=== PATIENT | female | born 1940 | race Caucasian/White ===

== ENCOUNTER → 2018-07-26 | Outpatient (CLI) | payer MEDICARE ==
--- NOTE | 2018-07-26 16:50 | Diagnostic Imaging Report ---
INDICATION: Abdominal distention. PA chest, supine and upright abdominal images were obtained. FINDINGS: Lungs are clear. There is no intraperitoneal free air. Bowel gas pattern is normal. There are no pathologic masses or calcifications. IMPRESSION: Negative abdomen series. Dictated by: Dictated on workstation # [id number]
== END ==
LOC: RAD FS 16:34
PROVIDERS: ATTEND Family Medicine
DX: R14.0 Abdominal distension (gaseous) (principal)
CPT/HCPCS: 74022

== ENCOUNTER 2020-12-18 05:40 | Emergency (ER) | payer MEDICARE ==
[~2020-12-18] VITALS: Ht 162.6 cm; Wt 93.4 kg
[2020-12-18 05:49] VITALS: BP 188/74
--- NOTE | 2020-12-18 06:08 | ED Integumentary General ---
General Chief Complaint: Bite-Animal/Human/Insect Stated Complaint: INSECT BITE RIGHT ARM Nursing Triage Note: PT AMBUALATE TO ROOM FS02 WITH C/O BUG BITES TO LEFT WRIST AND RIGHT SHOULDER. PT STATES THAT SHE WOKE UP SCRATCHING HER LEFT WRIST AND THEN PUT HYDROGEN PEROXIDE ON THE AREA. AT THIS TIME THE PT NOTICES A BRUISED AREA TO RIGHT SHOULDER WITH SMALL RED BITES TO THE AREA. Source: patient Exam Limitations: no limitations History of Present Illness Date Seen by Provider: Dec 18, 2020 Time Seen by Provider: 05:50 Initial Comments 80-year-old female with past medical history of CHF, hypertension, hyperlipidemia, hypothyroidism, and diabetes coming in due to concerns for bug bites. She states she woke up in the middle the night, her left hand and wrist were itching, and when she checked she had small circular red dots on her hand that were concerning for bug bites to her. She put hydrogen peroxide on it at that time. It was then that she noticed that her right shoulder was hurting her, and she noticed a bruise to the area. It was at this time that she decided to present to the emergency department. She does not remember hitting her shoulder on anything, and does not take any blood thinners. She states she has full range of motion of her shoulder and it does not hurt if she is not touching it. She denies any fever, body aches, hematuria, headache, weakness, numbness, chest pain, shortness of breath, nausea, vomiting, abdominal pain, dysuria, or any other concerns. Allergies and Home Medications Allergies Coded Allergies: Penicillins (Verified Allergy, Unknown, 12/18/20) adenosine (Verified Allergy, Unknown, 12/18/20) bee venom protein (honey bee) (Verified Allergy, Unknown, 12/18/20) quinine (Verified Allergy, Unknown, 12/18/20) tetracycline (Verified Allergy, Unknown, 12/18/20) Patient Home Medication List Home Medication List Reviewed: Yes Review of Systems Review of Systems Constitutional: No fever EENTM: No blurred vision Respiratory: No cough, No short of breath Cardiovascular: No chest pain Gastrointestinal: No abdominal pain, No diarrhea, No nausea, No vomiting Genitourinary: No dysuria, No frequency Musculoskeletal: No back pain Skin: pruritus, rash Psychiatric/Neurological: Denies Anxiety, Denies Depressed Endocrine: No Symptoms Reported Hematologic/Lymphatic: No Symptoms Reported All Other Systems Reviewed Negative Unless Noted: Yes Past Hkyxnpx-Aidlbb-Qpkyie Hx Patient Social History Tobacco Use?: No Smoking Status: Never a Smoker Substance use?: No Alcohol Use?: Yes Alcohol type: Wine Alcohol Frequency: Once in a while Physical Exam Vital Signs Vital Signs - First Documented 12/18/20 05:49 Temp 36.4 Pulse 84 Resp 17 B/P (MAP) 188/74 (112) O2 Delivery Room Air Capillary Refill : Less Than 3 Seconds General Appearance: WD/WN, no apparent distress HEENT: PERRL/EOMI, normal ENT inspection, pharynx normal Neck: non-tender, full range of motion, supple, normal inspection Cardiovascular: regular rate, rhythm, no edema, no murmur Respiratory: chest non-tender, lungs clear, normal breath sounds, no respiratory distress, no accessory muscle use Gastrointestinal: normal bowel sounds, non tender, soft; No distended, No guarding Back: normal inspection Extremities: normal range of motion, non-tender, normal inspection, no pedal edema Neurologic/Psychiatric: no motor/sensory deficits, alert, normal mood/affect Skin: normal color, warm/dry, rash (Roughly 1 cm macular circular rash to her left hand which is in roughly 4 places on the hand, this is blanchable, Nikolsky negative, no bite seen, more so over bruising pattern to the right shoulder) Lymphatic: no adenopathy Progress/Results/Core Measures Results/Orders Lab Results Laboratory Tests Test 12/18/20 06:01 Range/Units Urine Color YELLOW Urine Clarity CLEAR Urine pH 5.5 5-9 Urine Specific [place] 1.025 H 1.016-1.022 Urine Protein NEGATIVE NEGATIVE Urine Glucose (UA) NEGATIVE NEGATIVE Urine Ketones NEGATIVE NEGATIVE Urine Nitrite NEGATIVE NEGATIVE Urine Bilirubin NEGATIVE NEGATIVE Urine Urobilinogen 0.2 < = 1.0 MG/DL Urine Leukocyte Esterase NEGATIVE NEGATIVE Urine RBC (Auto) NEGATIVE NEGATIVE Urine RBC RARE /HPF Urine WBC 2-5 /HPF Urine Squamous Epithelial Cells 2-5 /HPF Urine Crystals NONE /LPF Urine Bacteria FEW H /HPF Urine Casts PRESENT /LPF Urine Hyaline Casts 2-5 H /LPF Urine Mucus SMALL H /LPF Urine Culture Indicated NO My Orders Orders - YOLANDE WILLIAMSON MD Ua Culture If Indicated (12/18/20 06:02) Dipht,Pertuss(Acell),Tet Adult (Boostrix (12/18/20 06:15) Medications Given in ED Current Medications Medications Dose Ordered Sig/Zelda Route Start Time Stop Time Status Last Admin Dose Admin Diphtheria/ Tetanus/Acell Pertussis 0.5 ml ONCE ONCE IM 12/18/20 06:15 12/18/20 06:16 DC 12/18/20 06:35 0.5 ML Vital Signs/I&O 12/18/20 05:49 Temp 36.4 Pulse 84 Resp 17 B/P (MAP) 188/74 (112) O2 Delivery Room Air Blood Pressure Mean: 112 Progress Progress Note : Progress Note 80-year-old female with above history coming in concerned she was bitten by a bug. ABCs were intact and vitals were stable on presentation. She is showing no signs of anaphylaxis. She does have a macular rash on her left hand which is nonspecific and very minimal on exam. The bruising to her right shoulder seems more like a bruise from walking into a wall or something similar. However, it does have some similarities to a brown recluse bite with the red, white, and blue rash. It is not entirely pathognomonic however, and does appear somewhat different. She is not having any systemic signs of systemic loxoscelism including no fever, body aches, hematuria, or any other concerns. However, we will send a urine as a screening test to be sure she is no signs of hemolysis. Urinalysis without blood and overall with her clinical picture I have a very low suspicion for systemic effects from brown recluse bite. More likely an unknown insect that is likely not dangerous given her lack of symptoms. Tetanus was updated today. I believe she is stable for discharge. She was sent home with strict return precautions. Departure Impression Primary Impression: Insect bite Qualified Codes: S40.861A - Insect bite (nonvenomous) of right upper arm, initial encounter; W57.XXXA - Bitten or stung by nonvenomous insect and other nonvenomous arthropods, initial encounter Disposition: 01 HOME, SELF-CARE Condition: Stable Departure-Patient Inst. Decision time for Depature: 06:40 Referrals: SELF,NISHI ORNELAS (PCP/Family) Primary Care Physician Patient Instructions: Insect Bites and Stings ED Add. Discharge Instructions: You were seen in the emergency department for possible insect bite versus some other cause of the rash on your hand and the bruise in your right arm. Of course it is always possible you ran into something with your right shoulder and caused bruising without realizing it. If it is extremely itchy you can try an over the counter allergy medicine such as claritin, or benadryl cream on the areas that itch. If you develop any fever, peeing blood, body aches, or any other concerns then please come back to the emergency department. All discharge instructions reviewed with patient and/or family. Voiced understanding. YOLANDE WILLIAMSON MD Dec 18, 2020 06:08
[2020-12-18 06:10] LABS: BILIRUBIN,URINE NEGATIVE (NEGATIVE); CLARITY,URINE CLEAR; COLOR,URINE YELLOW; GLUCOSE, URINE (UA) NEGATIVE (NEGATIVE); KETONES,URINE NEGATIVE (NEGATIVE); LEUKOCYTE ESTERASE ,URINE NEGATIVE (NEGATIVE); NITRITE,URINE NEGATIVE (NEGATIVE); PH,URINE 5.5 (5-9); PROTEIN,URINE NEGATIVE (NEGATIVE)
[2020-12-18] MEDS ORDERED: TETANUS,DIPTH,PERTUSS P/F (BOOSTRIX) 0.5 ML VIAL IM ONE (06:15)
[2020-12-18 06:19] LABS: BACTERIA,URINE FEW /HPF; RBC,URINE RARE /HPF
== END 2020-12-18 06:38 | disposition home or self-care (01) ==
LOC: EDUNIT# 05:40 → ER FS 05:44
DX: S40.861A Insect bite (nonvenomous) of right upper arm, initial encounter (principal); I11.0 Hypertensive heart disease with heart failure; I50.9 Heart failure, unspecified; E11.9 Type 2 diabetes mellitus without complications; Z23 Encounter for immunization; W57.XXXA Bitten or stung by nonvenomous insect and other nonvenomous arthropods, initial encounter
CPT/HCPCS: 81000; 90471; 90715; 99284

== ENCOUNTER 2021-10-28 08:04 | Emergency (ER) | payer MEDICARE ==
--- NOTE | 2021-10-28 08:15 | ED Lower Extremity ---
History of Present Illness Date Seen by Provider: Oct 28, 2021 Time Seen by Provider: 08:15 Initial Comments 81-year-old female presents with pain in her great toe and second toe on her right foot. Patient reports that yesterday she tripped over a rug. That initially she had a little bit of pain in the second toe but now she is having some pain in the great toe. X-ray at the base of her toes. She has a little bit redness this develops. She denies any other injury. Patient's sister had a walking shoe that she put on. No other systemic complaints Allergies and Home Medications Allergies Coded Allergies: Penicillins (Verified Allergy, Unknown, 12/18/20) adenosine (Verified Allergy, Unknown, 12/18/20) bee venom protein (honey bee) (Verified Allergy, Unknown, 12/18/20) quinine (Verified Allergy, Unknown, 12/18/20) tetracycline (Verified Allergy, Unknown, 12/18/20) Patient Home Medication List Home Medication List Reviewed: Yes Review of Systems Constitutional: No chills, No fever EENTM: no symptoms reported Respiratory: no symptoms reported Cardiovascular: no symptoms reported Gastrointestinal: no symptoms reported Genitourinary: no symptoms reported Musculoskeletal: see HPI Skin: see HPI Psychiatric/Neurological: No Symptoms Reported Physical Exam Vital Signs Vital Signs - First Documented 10/28/21 08:15 Temp 36.1 Pulse 63 Resp 18 B/P (MAP) 144/52 (82) Pulse Ox 99 O2 Delivery Room Air Capillary Refill : Height, Weight, BMI Height: '" Weight: lbs. oz. kg; 35.00 BMI Method: General Appearance: WD/WN, no apparent distress Cardiovascular: normal peripheral pulses, regular rate, rhythm Respiratory: lungs clear, normal breath sounds Gastrointestinal: non tender, soft Hips: bilateral hip non-tender Legs: bilateral leg non-tender Knees: bilateral knee non-tender Ankles: bilateral ankle non-tender Feet: right foot soft tissue tenderness (Right great toe and second toe) Neurologic/Psychiatric: alert, normal mood/affect, oriented x 3 Skin: warm/dry, other (Mild erythema medial aspect right foot along right great toe base) Progress/Results/Core Measures Results/Orders My Orders Orders - DOREEN IRELAND DO Foot 3 View Right (10/28/21 08:15) Vital Signs/I&O 10/28/21 10/28/21 08:15 09:04 Temp 36.1 36.1 Pulse 63 63 Resp 18 18 B/P (MAP) 144/52 (82) 144/52 Pulse Ox 99 99 O2 Delivery Room Air Room Air Progress Progress Note : Progress Note Patient with no acute fracture noted on x-ray. Patient with likely sprain toe. Discussed with her she could use [id number] treatment such as Tylenol, ibuprofen, topical lidocaine and Voltaren cream. She can wear her walking shoe or regular shoes as preferred for pain. Patient stable and discharged home Diagnostic Imaging Diagonstic Imaging: Xray Plain Films/CT/US/NM/MRI: other Comments Date of Exam:10/28/21 FOOT 3 VIEW RIGHT INDICATION: Trauma, pain COMPARISON: None available. TECHNIQUE: 3 radiographs of the right foot dated 10/28/2021 FINDINGS: No acute fracture or dislocation. No destructive osseous process. Flexion deformities of the 2nd and 3rd toes are noted. 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 Mild scattered degenerative changes, including the 1st MTP joint with osteophyte formation. Mild background vascular calcifications. Moderate sized plantar calcaneal enthesophyte. 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 Moderate sized plantar calcaneal enthesophyte. Reviewed: Reviewed by Me, Reviewed/Discussed Departure Impression Primary Impression: Sprain of toe, great, right Qualified Codes: S93.501A - Unspecified sprain of right great toe, initial encounter Additional Impression: Sprain of toe, second, right Qualified Codes: S93.504A - Unspecified sprain of right lesser toe(s), initial encounter Disposition: 01 HOME, SELF-CARE Condition: Stable Departure-Patient Inst. Referrals: SELF,NISHI ORNELAS (PCP/Family) Primary Care Physician Patient Instructions: Toe Injury, Foot Sprain ED Add. Discharge Instructions: Tylenol or ibuprofen every 4-6 hours as needed for pain 4% topical lidocaine with menthol cream or gel use as directed on pack Voltaren/diclofenac cream or gel use as directed on pack Ice for the next 24 hours for 20 minutes at a time 3-4 times daily then warm moist heat Follow-up with your primary care provider in 7 to 10 days if symptoms or not improving DOREEN IRELAND DO Oct 28, 2021 08:15
--- NOTE | 2021-10-28 09:03 | Diagnostic Imaging Report ---
INDICATION: Trauma, pain COMPARISON: None available. TECHNIQUE: 3 radiographs of the right foot dated 10/28/2021 FINDINGS: No acute fracture or dislocation. No destructive osseous process. Flexion deformities of the 2nd and 3rd toes are noted. 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 Mild scattered degenerative changes, including the 1st MTP joint with osteophyte formation. Mild background vascular calcifications. Moderate sized plantar calcaneal enthesophyte. 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 Moderate sized plantar calcaneal enthesophyte. Dictated by: Dictated on workstation # [id number]
[2021-10-28 09:04] VITALS: BP 144/52
== END 2021-10-28 09:14 | disposition home or self-care (01) ==
LOC: EDUNIT# 08:04 → ER FS 08:07
DX: S93.501A Unspecified sprain of right great toe, initial encounter (principal); S93.504A Unspecified sprain of right lesser toe(s), initial encounter; Z28.310 Unvaccinated for COVID-19; W01.0XXA Fall on same level from slipping, tripping and stumbling without subsequent striking against object, initial encounter
CPT/HCPCS: 73630

== ENCOUNTER 2022-03-09 05:29 | Outpatient (CLI) | payer MEDICARE ==
[~2022-03-09] VITALS: Ht 162.5 cm; Wt 93.4 kg
[2022-03-10] MEDS ORDERED: EPIN0.3P3 IJ (09:52)
[2022-03-10] MEDS ORDERED: QUIN40TA34 PO (09:52)
[2022-03-10] MEDS ORDERED: ATEN100T PO (09:52)
[2022-03-10] MEDS ORDERED: INSU100V39 SQ (09:52)
[2022-03-10] MEDS ORDERED: ALLO100T PO (09:52)
[2022-03-10] MEDS ORDERED: ACET-11 PO (09:52)
[2022-03-10] MEDS ORDERED: FLUT9.9S NS (09:52)
[2022-03-10] MEDS ORDERED: FURO40TA4 PO (09:52)
[2022-03-10] MEDS ORDERED: ATOR80TA76 PO (09:52)
[2022-03-10] MEDS ORDERED: CLIN150C20 PO (09:52)
[2022-03-10] MEDS ORDERED: AMLO-250 PO (09:52)
[2022-03-10] MEDS ORDERED: ALPR0.254 PO (09:52)
[2022-03-10] MEDS ORDERED: CETI10TA17 PO (09:52)
[2022-03-10] MEDS ORDERED: ASPI81TA16 PO (09:52)
[2022-03-10] MEDS ORDERED: LEVO112T55 PO (11:48)
[2022-03-10] MEDS ORDERED: POTA20PA28 PO (11:48)
[2022-03-10] MEDS ORDERED: NYST1000 PO (11:48)
[2022-03-10] MEDS ORDERED: INSU100V6 SQ (11:48)
[2022-03-10] MEDS ORDERED: MELO7.5T46 PO (11:48)
[2022-03-10] MEDS ORDERED: TR1O15 TP (11:48)
[2022-03-10] MEDS ORDERED: MECL-149 PO (11:48)
[2022-03-10] MEDS ORDERED: MV-M1CAP24 PO (11:48)
[2022-03-10] MEDS ORDERED: METO100T12 PO (11:48)
== END 2022-03-10 12:01 | disposition home or self-care (01) ==
LOC: PREOP 05:29
PROVIDERS: ATTEND Podiatrist Foot & Ankle Surgery
DX: Z01.818 Encounter for other preprocedural examination (principal)

== ENCOUNTER 2022-04-01 05:33 | Outpatient (CLI) | payer MEDICARE ==
[~2022-04-01] VITALS: Ht 162.5 cm; Wt 98.7 kg
[~2022-04-01 05:33] MED LIST: ACET-11 PO; ALLO100T PO; ALPR0.254 PO; AMLO-250 PO; ASPI81TA16 PO; ATEN100T PO; ATOR80TA76 PO; CETI10TA17 PO; CLIN150C20 PO; EPIN0.3P3 IJ; FLUT9.9S NS; FURO40TA4 PO; INSU100V39 SQ; INSU100V6 SQ; LEVO112T55 PO; MECL-149 PO; MELO7.5T46 PO; METO100T12 PO; MV-M1CAP24 PO; NYST1000 PO; POTA20PA28 PO; QUIN40TA34 PO; TR1O15 TP
[2022-04-05] MEDS ORDERED: [UNRECOGNIZED DRUG - OTHER] (15:37)
[2022-04-05] MEDS ORDERED: INSU100V SQ (15:37)
== END 2022-04-05 17:42 | disposition home or self-care (01) ==
LOC: PREOP 05:33
PROVIDERS: ATTEND Podiatrist Foot & Ankle Surgery
DX: Z01.818 Encounter for other preprocedural examination (principal)

== ENCOUNTER 2022-04-08 07:44 | Day surgery (SDC) | payer MEDICARE ==
[~2022-04-08] VITALS: Ht 162.5 cm; Wt 98.7 kg
[2022-04-08] VITALS (8 sets, daily range): BP systolic 105–146; BP diastolic 50–97
[~2022-04-08 07:44] MED LIST changes: +INSU100V SQ; +[UNRECOGNIZED DRUG - OTHER]
[2022-04-08] MEDS ORDERED: LACTATED RINGERS 1,000 ML IV PRN (08:30)
[2022-04-08] MEDS ORDERED: VANCOMYCIN INJECTION 1,000 MG in NS (IVPB) 250 ML IV ONE (08:30)
[2022-04-08] MEDS ORDERED: CATHETER FLUSH 10 ML SYR IVP PRN (08:45)
[2022-04-08] MEDS ORDERED: BUPIVACAINE 0.5% 30 ML (SENSORCAINE) VIAL ONE (09:40)
[2022-04-08] MEDS ORDERED: LIDOCAINE 1% INJ 20 ML VIAL ONE (09:40)
--- NOTE | 2022-04-08 09:59 | Progress Note-Pre Operative ---
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
[2022-04-08] MEDS ORDERED: fentaNYL INJ 100 MCG/2 ML AMP ONE (10:22)
[2022-04-08] MEDS ORDERED: LIDOCAINE PF 2% 5 ML (XYLOCAINE) VIAL ONE (11:10)
[2022-04-08] MEDS ORDERED: proPOfol 200 MG/20 ML (DIPRIVAN) VIAL IV ONE (11:10)
[2022-04-08] MEDS ORDERED: PROPOFOL INJECTION 50 ML IV ONE (11:10)
--- NOTE | 2022-04-08 11:20 | Progress Note-Post Operative ---
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
--- NOTE | 2022-04-08 11:21 | Anesthesia-General Post-Op ---
MAC Patient Condition Mental Status/LOC: Same as Preop Cardiovascular: Satisfactory Nausea/Vomiting: Absent Respiratory: Satisfactory Pain: Controlled Complications: Absent Post Op Complications Complications None Follow Up Care/Instructions Patient Instructions None needed. Anesthesiology Discharge Order Discharge Order Patient is doing well, no complaints, stable vital signs, no apparent adverse anesthesia problems. No complications reported per nursing. SKIP HARDY CRNA Apr 08, 2022 11:21
[2022-04-08] MEDS ORDERED: ACHD5005 PO (11:24)
[2022-04-08] MEDS ORDERED: CLIN150C2 PO (11:24)
[2022-04-08] MEDS ORDERED: ONDANSETRON 4 MG/2 ML (SDV) Z0FRAN IVP PRN (11:30)
[2022-04-08] MEDS ORDERED: HYDROcodone/APAP 5 MG/325 MG (LORTAB) TAB PO PRN (11:30)
[2022-04-08] MEDS ORDERED: LACTATED RINGERS 1,000 ML IV SCH (11:30)
[2022-04-08] MEDS ORDERED: fentaNYL INJ 100 MCG/2 ML AMP IVP ONE (11:30)
--- NOTE | 2022-04-08 13:19 | Physical Therapy Progress Note ---
Therapy Progress Note Patient left prior to PT availability. No PT rendered. MOSES BELL PT Apr 08, 2022 13:19
--- NOTE | 2022-04-08 17:28 | Diagnostic Imaging Report ---
Foot, right, 2 view. INDICATION: Immediate postop imaging after hammertoe correction. COMPARISON: 10/28/2021. TECHNIQUE: 2 views of the right foot. FINDINGS: Partial osteotomy of the 2nd proximal phalanx with K wire fixation through all the phalanges of the 2nd toe. Osteotomy of the 2nd metatarsal head has also been performed with a single screw and washer fixation. Mild hallux valgus is unchanged. IMPRESSION: Expected appearance after 2nd hammertoe correction surgery. Dictated by: Dictated on workstation # [id number]
--- NOTE | 2022-04-08 18:00 | OPERATIVE REPORT ---
DATE OF SERVICE: 04/08/2022 SURGEON: Mckenzie Morel DPM. PREOPERATIVE DIAGNOSES: 1. Hypertrophic second metatarsal, right foot. 2. Hammer digit syndrome, right second digit. 3. Subluxed right second metatarsophalangeal joint. POSTOPERATIVE DIAGNOSIS: 1. Hypertrophic second metatarsal, right foot. 2. Hammer digit syndrome, right second digit. 3. Subluxed right second metatarsophalangeal joint. PROCEDURES PERFORMED: 1. Second metatarsal osteotomy with screw fixation. 2. Reduction of hammertoe, right second digit with K-wire fixation. WOUND CLASS: Clean. ANESTHESIA: Monitored anesthesia care. HEMOSTASIS: Pneumatic ankle tourniquet at 250 mmHg. INDICATIONS FOR PROCEDURE: This 81-year-old female presents complaining of painful right second toe. The digit has been subluxed at the metatarsophalangeal joint for some time; however, the majority of her discomfort is associated with the hammertoe rubbing in her shoe and also the contracture has been very uncomfortable for her. Conservative therapy has met with unsatisfactory results and the patient is agreeable to surgical intervention after the risks and complications were discussed at length. No guarantees were extended to the patient and she is willing to proceed. DESCRIPTION OF PROCEDURE: The patient was brought back to the operating room table and placed in a secure supine position. Anesthesia was achieved utilizing 12 mL of 1:1 mixture of 1% Xylocaine and 0.5% Marcaine injected in a digital and ray block to the right second metatarsal and digit. The right foot was then prepped and draped in a normal sterile manner. The right foot was then elevated and allowed to exsanguinate after which the tourniquet was inflated to 250 mmHg. Attention was then directed to the dorsal aspect of the right second ray, where a 4.5 cm longitudinal linear incision was created. The incision was deepened in the same plane with great care to identify and retract all vital neurovascular structures. Only necessary blood vessels were cauterized as encountered. The incision was deepened down to the extensor tendon, where a Z-slide lengthening was performed. The extensor tendon was retracted proximally and distally. Next, a dorsal capsulorrhaphy was performed to the second metatarsophalangeal joint and the medial and lateral collateral ligaments released. A McGlamry elevator was utilized to release plantar adhesions. This allowed the base of the proximal phalanx to come in to contact with the distal aspect of the second metatarsal head where as it was previously it was riding on top of the head. Next, utilizing a power sagittal saw, a Luis E type osteotomy was performed. This allowed the capital fragment to translocate proximally. It was fixated in its corrected position utilizing a 2.0 snap-off screw of 14 mm of length. Excellent bony apposition fixation was appreciated at this time. The wound was flushed with copious amounts of normal saline. This allowed the proximal phalanx to come down into a more rectus alignment with the second metatarsal head. Attention was then directed to the proximal interphalangeal joint of the right second toe. A capsulorrhaphy was performed as well as a release of the medial and lateral collateral ligaments. Utilizing a power sagittal saw, the head of the proximal phalanx was fashioned into a PEG and a hole was created at the base of the middle phalanx with a power bur. The power bur was also utilized to reshape the head of the proximal phalanx to match for the peg-in-hole type arthrodesis. A 0.054 smooth K-wire was driven down the toe holding the digit in place in its new rectus alignment. The excess K-wire at the end of the toe was cut and a protective ball placed over the wire. The wound was flushed with copious amounts of normal saline throughout the procedure and closure was performed in layers. Deep closure was performed with 3-0 Vicryl, superficial with 4-0 Vicryl, and skin closure with 4-0 Prolene in a horizontal mattress type stitch. Postoperative dressing consisted of Betadine-soaked Adaptic, sterile 4 x 4's, sterile Kerlix all secured with a Coban wrap. The patient tolerated the anesthesia and procedure well and was transported from the operating room to the recovery area with vital signs stable and vascular status intact to all digits of the right foot. She is to be partial weightbearing with heel contact only on the right lower extremity. We will see the patient back in approximately 10 days for followup or sooner if needed. Job ID: [id number] DocumentID: [id number] Dictated Date: 04/08/2022 11:33:25 Electric Installer Date: 04/08/2022 17:58:00 Dictated By: MCKENZIE MOREL DPM
== END 2022-04-08 12:41 | disposition home or self-care (01) ==
LOC: SDC 07:44
PROVIDERS: ATTEND Podiatrist Foot & Ankle Surgery
DX: M20.41 Other hammer toe(s) (acquired), right foot (principal); M89.371 Hypertrophy of bone, right ankle and foot; S93.144A Subluxation of metatarsophalangeal joint of right lesser toe(s), initial encounter; E66.01 Morbid (severe) obesity due to excess calories; I35.8 Other nonrheumatic aortic valve disorders; K59.01 Slow transit constipation; I10 Essential (primary) hypertension; X58.XXXA Exposure to other specified factors, initial encounter; Z68.37 Body mass index [BMI] 37.0-37.9, adult; Z79.899 Other long term (current) drug therapy; Z28.310 Unvaccinated for COVID-19
CPT/HCPCS: 28285; 28308; 73620; 82947; 87081; C1713

== ENCOUNTER 2022-08-07 11:41 | Emergency (ER) | payer MEDICARE ==
[~2022-08-07 11:41] MED LIST changes: +ACHD5005 PO; +CLIN150C2 PO
--- NOTE | 2022-08-07 12:04 | ED Lower Extremity ---
General Chief Complaint: Lower Extremity Stated Complaint: LEFT KNEE Source: patient History of Present Illness Date Seen by Provider: Aug 07, 2022 Time Seen by Provider: 11:44 Initial Comments 81 yo female presenting with complaints of increased pain to left knee since it popped while walking a week ago and then rolled out of bed yesterday. It has hurt more since rolling out of bed. She uses a walker to get around. She has to keep her knee straight to be able to walk. It feels bruised and like it is "wobbly". She has more pain to lower part of the knee and some in the back. She has pain with palpation along the tibia and with flexion. She had taken a pain patch and applied it to the knee. She felt it was hurting more today so she came to the ED to be seen. She does take Meloxicam as a routine medicine. She denies other injuries or complaints. She rates her pain at 8-10 out of 10 depending on what she is doing. Onset: last week Pain/Injury Location: left knee Method of Injury: other (Popped loudly as she was walking a week ago, rolled out of bed on it yesterday) Modifying Factors: Worse With Movement Allergies and Home Medications Allergies Coded Allergies: ciprofloxacin (Unverified Allergy, Severe, Anaphylaxis, 04/05/22) rosiglitazone (Unverified Allergy, Severe, Rash, 04/05/22) tramadol (Unverified Allergy, Severe, Vomiting, 04/05/22) Penicillins (Verified Allergy, Unknown, 04/05/22) adenosine (Verified Allergy, Unknown, 04/05/22) bee venom protein (honey bee) (Verified Allergy, Unknown, 04/05/22) nitrofurantoin (Unverified Allergy, Unknown, 04/05/22) quinine (Verified Allergy, Unknown, 04/05/22) tetracycline (Verified Allergy, Unknown, 04/05/22) clindamycin (Verified Adverse Reaction, Unknown, Nausea/Vomiting, 08/07/22) Patient Home Medication List Home Medication List Reviewed: Yes ALPRAZolam (ALPRAZolam) 0.25 Mg Tablet, 0.25 MG PO UD, (Reported) Entered as Reported by: KIARRA ZAYAS on 03/10/22 0952 Acetaminophen with Codeine (Acetaminophen-Cod #3 Tablet) 300 Mg-30 Mg Tablet, 1 EACH PO BID PRN, (Reported) Entered as Reported by: KIARRA ZAYAS on 03/10/22951 Allopurinol (Allopurinol) 100 Mg Tablet, 100 MG PO DAILY, (Reported) Entered as Reported by: KIARRA ZAYAS on 03/10/22951 Amlodipine Besylate (Amlodipine Besylate) 5 Mg Tablet, 5 MG PO DAILY, (Reported) Entered as Reported by: KIARRA ZAYAS on 03/10/22951 Aspirin (Low Dose Aspirin EC) 81 Mg Tablet.dr, 81 MG PO DAILY, (Reported) Entered as Reported by: KIARRA ZAYAS on 03/10/22951 Atenolol (Atenolol) 100 Mg Tablet, 100 MG PO DAILY, (Reported) Entered as Reported by: KIARRA ZAYAS on 03/10/22951 Atorvastatin Calcium (Atorvastatin Calcium) 80 Mg Tablet, 80 MG PO DAILY, (Reported) Entered as Reported by: KIARRA ZAYAS on 03/10/22951 Cetirizine HCl (Cetirizine HCl) 10 Mg Tablet, 10 MG PO DAILY, (Reported) Entered as Reported by: KIARRA ZAYAS on 03/10/22951 Clindamycin HCl (Clindamycin HCl) 150 Mg Capsule, 150 MG PO Q8H, (Reported) Entered as Reported by: KIARRA ZAYAS on 03/10/22951 Clindamycin HCl (Cleocin HCl) 150 Mg Capsule, 1 CAP PO QID Prescribed by: ÁNGELA MOREL on 04/08/22 112 Furosemide (Furosemide) 40 Mg Tablet, 40 MG PO DAILY, (Reported) Entered as Reported by: KIARRA ZAYAS on 03/10/22951 Hydrocodone/Acetaminophen (Hydrocodone-Acetamin 5-325 mg) 5 Mg-325 Mg Tablet, 1 TAB PO Q4H PRN for PAIN-MODERATE (5-7) Prescribed by: ÁNGELA MOREL on 04/08/22 1125 Hydrocodone/Acetaminophen (Hydrocodone-Acetamin 5-325 mg) 5 Mg-325 Mg Tablet, 1 TAB PO Q6H PRN for PAIN SEVERE Prescribed by: VERONA ESCALONA on 08/07/22 1243 Insulin Glargine,Hum.rec.anlog (Lantus) 100 Unit/Ml Vial, 47 UNIT SQ UD, (Reported) Entered as Reported by: KIARRA ZAYAS on 03/10/22 1148 Insulin Lispro (Humalog) 100 Unit/Ml Vial, 6 UNIT SQ AC, (Reported) Entered as Reported by: YESSENIA GARCIA on 04/05/22 153 Levothyroxine Sodium (Levothyroxine Sodium) 112 Mcg Tablet, 112 MCG PO DAILY, (Reported) Entered as Reported by: KIARRA ZAYAS on 03/10/22 1148 Meclizine HCl (Meclizine HCl) 25 Mg Tablet, 25 MG PO TID, (Reported) Entered as Reported by: KIARRA ZAYAS on 03/10/22 114 Meloxicam (Meloxicam) 7.5 Mg Tablet, 7.5 MG PO DAILY, (Reported) Entered as Reported by: KIARRA ZAYAS on 03/10/22 114 Mv-Mn/Om3/Dha/Epa/Fish/Lut/Ramin (Ocuvite Adult 50 Plus Softgel) 250 Mg (90 Mg-160 Mg)-5 Mg-1 Mg Capsule, 1 EACH PO, (Reported) Entered as Reported by: KIARRA ZAYAS on 03/10/22 114 Potassium Chloride (Potassium Chloride) 20 Meq Packet, 20 MEQ PO DAILY, (Reported) Entered as Reported by: KIARRA ZAYAS on 03/10/22 114 Quinapril HCl (Quinapril HCl) 40 Mg Tablet, 40 MG PO DAILY, (Reported) Entered as Reported by: KIARRA ZAYAS on 03/10/22 0952 [Vit A,C,B12] Unknown Strength , Unknown Dose, (Reported) Entered as Reported by: YESSENIA GARCIA on 04/05/22 153 Review of Systems Constitutional: no symptoms reported EENTM: no symptoms reported Respiratory: no symptoms reported Cardiovascular: no symptoms reported Gastrointestinal: no symptoms reported Genitourinary: no symptoms reported Musculoskeletal: see HPI, joint pain (left knee) Skin: No change in color Psychiatric/Neurological: Denies Numbness, Denies Paresthesia Past Fjszoxo-Tjpvms-Slczhp Hx Patient Social History Tobacco Use?: No Use of E-Cig and/or Vaping dev: No Substance use?: No Alcohol Use?: Yes Alcohol type: Wine Seasonal Allergies Seasonal Allergies: No Past Medical History Surgery/Hospitalization HX: CHF, BONNY, Hypertension, IDDM, Breast cancer treated with mastectomy and radiation Surgeries: Yes (KNEE REPLACEMENT RIGHT, LEFT BREAST CANCER, LEFT EAR DRUM SX) Breast, Orthopedic Respiratory: Yes Sleep Apnea Currently Using CPAP: No Currently Using BIPAP: No Cardiac: Yes (CHF, SYSTOLIC MURMUR-STABLE PER DR. RG) Cardiomyopathy, Hypertension Neurological: No Genitourinary: No Gastrointestinal: Yes Chronic Constipation, Chronic Diarrhea Musculoskeletal: Yes (OFELIA, "BONE ON BONE ON TOE") Endocrine: Yes Hyperthyroidism, Diabetes, Insulin dep HEENT: Yes (GLASSES, TOP DENTURES) Cataract Cancer: Yes Breast What Type of Treatment Did You: Radiation, Surgical Intervention Psychosocial: No Integumentary: No Blood Disorders: No Physical Exam Vital Signs Vital Signs - First Documented 08/07/22 11:47 Temp 35.6 Pulse 62 Resp 18 B/P (MAP) 178/42 (87) Pulse Ox 98 O2 Delivery Room Air Capillary Refill : Height, Weight, BMI Height: '" Weight: lbs. oz. kg; 37.37 BMI Method: General Appearance: WD/WN, no apparent distress Cardiovascular: normal peripheral pulses Knees: left knee pain, left knee soft tissue tenderness Neurologic/Tendon: normal sensation, normal motor functions, normal tendon functions Neurologic/Psychiatric: alert, oriented x 3 Skin: normal color, warm/dry Progress/Results/Core Measures Results/Orders My Orders Orders - VERONA ESCALONA MD Knee 3 View Left (08/07/22 11:57) Tomi Bandage (08/07/22 12:21) Vital Signs/I&O 08/07/22 08/07/22 11:47 12:46 Temp 35.6 35.6 Pulse 62 62 Resp 18 18 B/P (MAP) 178/42 (87) 178/42 Pulse Ox 98 98 O2 Delivery Room Air Room Air Progress Progress Note #1: Progress Note potential diagnosis of knee sprain, patella fracture, tibia fracture, fibula fracture, collateral ligament strain, meniscus injury. Obtain xrays of the left knee to look for acute bony abnormality. Advised she may need to have MRI to look for cartilage or soft tissue injury, but that would have to be ordered by PCP or Orthopedics. Progress Note #2: Time: 12:09 Progress Note On my personal interpretation and review of the 3 views of x-ray films of the left knee she has no acute bony fracture and I did not appreciate an effusion. Progress Note #3: Time: 12:15 Progress Note I reviewed the radiologist report on the three-view films of the left knee. They agreed that there was no acute fracture. She has advanced arthritic changes without joint effusion. Will discuss with the patient about options of Tomi bandage for compression and support. Have her continue to use her walker for weightbearing as tolerated. Continue with the meloxicam she already has to help with inflammation. She could also use Salonpas lidocaine patches to help with pain. Follow-up with primary care or orthopedics as she may need physical therapy and if having worsening symptoms may need MRI. Try to elevate knee to help with pain. Consider ice pack to help with pain and could alternate with heat to try and help with pain in the knee. Diagnostic Imaging Diagonstic Imaging: Xray Plain Films/CT/US/NM/MRI: knee Comments [facility] [place], [place] NAME: PARVIN VIVEROS [facility] REC#: [id number] PT STATUS: REG ER : 1940 PHYSICIAN: VERONA ESCALONA MD ADMIT DATE: 08/07/22/ER FS Draft Date of Exam:08/07/22 KNEE 3 VIEW LEFT EXAMINATION: Left knee radiographs, 3 views. COMPARISON: None. HISTORY: 81-year-old female, left knee pain since popping injury one week ago. Fall. 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 There is severe medial and patellofemoral cartilage joint space loss. There is no knee joint effusion. There is degenerative type enthesopathy at the distal triceps tendon insertion. There is no identified acute fracture. There are tricompartmental osteophytes. There is no radiographically visible foreign body. IMPRESSION: 1. No identified acute bony abnormality of left knee. 2. Severe tricompartment osteoarthritis of left knee most notably involving the medial and patellofemoral compartment without knee joint effusion. Dictated on workstation # [id number] Dict: 08/07/22 1209 Trans: 08/07/22 1212 [facility] [id number] Interpreted by: IRENA DUPREE MD Electronically signed by: Reviewed: Reviewed by Me Departure Impression Primary Impression: Left knee sprain Qualified Codes: S83.92XA - Sprain of unspecified site of left knee, initial encounter Additional Impressions: Left knee pain Qualified Codes: M25.562 - Pain in left knee Osteoarthritis of left knee Qualified Codes: M17.12 - Unilateral primary osteoarthritis, left knee Disposition: 01 HOME, SELF-CARE Condition: Stable Departure-Patient Inst. Decision time for Depature: 12:22 Referrals: SELFNISHI MD (PCP) Primary Care Physician DANIAL LOPEZ MD Patient Instructions: Knee Sprain ED, Knee Pain ED Add. Discharge Instructions: Use Tomi wrap to give support to the knee. Continue to use your walker when you are ambulating to help give additional support as well. You could try using Salonpas lidocaine patches to help with the knee pain. You could take acetaminophen in addition to the meloxicam you are already taking to try and help with pain. Try alternating ice for 15 to 20 minutes and then a few hours later heat to the knee. This could try and help with inflammation and pain in the knee. Follow-up with primary care provider and/or orthopedics if continuing to have pain or not improving. They might need to perform an MRI if you are having more severe pain. They might try injections in your joint to help with inflammation and pain. They may also try to set you up for physical therapy to try and help with your knee pain. All discharge instructions reviewed with patient and/or family. Voiced understanding. Scripts Hydrocodone/Acetaminophen (Hydrocodone-Acetamin 5-325 mg) 5 Mg-325 Mg Tablet 1 TAB PO Q6H PRN for PAIN SEVERE for 3 Days, #12 TAB 0 Refills Prov: VERONA ESCALONA MD 08/07/22 VERONA ESCALONA MD Aug 07, 2022 12:04
--- NOTE | 2022-08-07 12:13 | Diagnostic Imaging Report ---
EXAMINATION: Left knee radiographs, 3 views. COMPARISON: None. HISTORY: 81-year-old female, left knee pain since popping injury one week ago. Fall. 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 There is severe medial and patellofemoral cartilage joint space loss. There is no knee joint effusion. There is degenerative type enthesopathy at the distal triceps tendon insertion. There is no identified acute fracture. There are tricompartmental osteophytes. There is no radiographically visible foreign body. IMPRESSION: 1. No identified acute bony abnormality of left knee. 2. Severe tricompartment osteoarthritis of left knee most notably involving the medial and patellofemoral compartment without knee joint effusion. Dictated by: Dictated on workstation # [id number]
[2022-08-07] MEDS ORDERED: ACHD5005 PO (12:42)
[2022-08-07 12:46] VITALS: BP 178/42
== END 2022-08-07 12:46 | disposition home or self-care (01) ==
LOC: EDUNIT# 11:41 → ER FS 11:43
DX: S83.92XA Sprain of unspecified site of left knee, initial encounter (principal); M17.12 Unilateral primary osteoarthritis, left knee; Z88.5 Allergy status to narcotic agent; Z28.310 Unvaccinated for COVID-19; X50.1XXA Overexertion from prolonged static or awkward postures, initial encounter; Y93.01 Activity, walking, marching and hiking
CPT/HCPCS: 73562